=== PATIENT | female | born 1935 | race Caucasian/White ===

== ENCOUNTER → 2018-07-07 | Outpatient (CLI) | payer MEDICARE, OTHER | LOC: GMAM 11:55 | PROVIDERS: ATTEND Family Medicine | DX: R30.0 Dysuria (principal) ==

== ENCOUNTER → 2018-07-17 | Outpatient (CLI) | payer MEDICARE, OTHER ==
--- NOTE | 2018-07-17 19:31 | CT ---
EXAM DESCRIPTION: Abdomen/Pelvis w/o Contrast: Computed Tomography. CLINICAL HISTORY: ICD 10: N23 flank pain COMPARISON: None. TECHNIQUE: Spiral-axial scans at 5 x 5 mm intervals through the abdomen and pelvis. Coronal and sagittal 2.0mm reconstructions. No IV or oral contrast. Total Exam DLP: 840.39 mGy-cm. This exam was performed according to our departmental CT dose-optimization program which includes automated exposure control, adjustment of the mA and/or kV according to patient size and/or use of iterative reconstruction technique; to reduce radiation dose to as low as reasonably achievable (ALARA). FINDINGS: Kidneys and Ureters: Atherosclerotic calcifications bilaterally but no radiodense stones. No hydronephrosis bilaterally. Cortical atrophy on the right. Unusual low-density in the inferior cortex of the right kidney. No perinephric edema. Bilateral ureters are normal caliber. Pelvic Organs: Minimally distended with no radiodense stones. Vaginal cuff is unremarkable. No free fluid. Pelvic calcifications.. Lung and pleura bases: Minimal scarring on the right. No bilateral pleural effusion. Liver, spleen, stomach, and adrenal glands: Liver normal size and density. Minimal gas in the stomach. 1 x 2 cm enlargement of the left adrenal gland with Hounsfield density ranging from -11 to +5. This could represent a adrenal adenoma. Other solid organs are unremarkable. Pancreas, Gallbladder, Ducts: Gallbladder visualized. Pancreas negative. Duct may be slightly dilated. Aorta: Numerous atherosclerotic calcifications with ectasia extending into the bilateral common iliac arteries. 2.7 x 2.6 cm in the origin of the ACE. 2.5 x 2.3 cm just below the diaphragmatic aortic hiatus. Small Bowel: Unremarkable. Terminal Ileum/Cecum: Minimal edema in the TI wall. Minimal edema in the wall of the cecum. Appendix is not seen. Colon: Beginning in the mid ascending colon and seen involving the colon to the proximal sigmoid segment, is edema in the nunez. There is minimal fatty stranding and serosal thickening as well. Also lack of haustral markings. Splenic flexure is redundant. Diverticula are seen from the proximal descending colon into the sigmoid colon. No complications. Mesentery: No free air or free fluid, but minimal fatty changes as described abutting the abnormal colonic serosa above. Spine and Bony Pelvis: Advanced spondylosis T12-L1 and L2-3 through L4-5 with scoliosis and canal stenosis or narrowing and foraminal stenosis or narrowing at several levels. Mild arthrosis in the bilateral hip joints, SI joints, and pubic symphysis. Abdominal Wall/Back Soft Tissues: Negative. IMPRESSION: 1. No radiodense stones in the kidneys ureters or urinary bladder. Cortical atrophy and decreased size of the right kidney. Ill-defined cortex abutting the lower pole. The patient cannot receive IV contrast due to renal function, consider MRI scan of the bilateral kidneys to evaluate the lower pole cortex. 2. Edema involving the nunez of the terminal ileum cecum and most of the colonic segments to the proximal sigmoid with minimal serosal thickening and lack of haustral markings. This is nonspecific finding but can represent inflammatory process such as ulcerative colitis. Consider gastroenterology consult, or colonoscopy and mucosal biopsy. Diverticulosis without diverticulitis. 3. Enlargement of the left adrenal gland with Hounsfield density consistent with adenoma. 4. Diffuse spondylosis of the lumbar spine with significant canal narrowing and foraminal narrowing or stenosis at some levels. 5. Diffuse aortic atherosclerotic changes consistent with ectasia from the diaphragmatic hiatus to the bifurcation. Electronically signed by: Burke Truong MD 07/17/2018 7:29 PM CDT
== END ==
LOC: CT 11:59
PROVIDERS: ATTEND Family Medicine
DX: N23 Unspecified renal colic (principal); N39.0 Urinary tract infection, site not specified

== ENCOUNTER → 2018-07-25 | Outpatient (CLI) | payer MEDICARE, OTHER | LOC: GMATM 11:28 | PROVIDERS: ATTEND Nurse Practitioner Family | DX: R10.84 Generalized abdominal pain (principal); M54.5 Low back pain ==

== ENCOUNTER → 2018-08-07 | Outpatient (CLI) | payer MEDICARE, OTHER ==
--- NOTE | 2018-08-08 10:00 | MRI ---
EXAM DESCRIPTION: Lumbar Spine w/o Contrast : Magnetic Resonance Imaging. CLINICAL HISTORY: LOW BACK PAIN COMPARISON: CT scan abdomen and pelvis 07/17/2018. TECHNIQUE: Multiplanar, multiple standard sequences, non contrast MRI, lumbar spine. FINDINGS: L5-S1: Disc desiccation with disc space preserved. Tiny posterior midline bulge. Bilateral flavum ligament hypertrophy. Mild canal narrowing. Bilateral mild foraminal narrowing more left than right. L4-5: Significant disc space loss with irregular endplates. 4 mm anterolisthesis. Anterior disc bulge with spurs. Posterior 4 mm broad-based bulge. Facet arthrosis and flavum ligament and facet hypertrophy. AP canal diameter 3 mm. Bilateral subarticular recess narrowing. Bilateral disc osteophyte complex formation larger on the right with Modic type III endplate reaction. Right foraminal stenosis moderate left foraminal narrowing. L3-4: Severe disc space loss and disc desiccation. Anterior bulging with spurs. Posterior disc osteophyte complex bulge into the canal with 3 mm retrolisthesis. Moderate flavum ligament hypertrophy and facet arthrosis with AP canal diameter 5.2 mm. Bilateral mild to moderate foraminal narrowing. L2-3: Disc desiccation and severe disc space loss with anterior bulging and large spurs. Grade 1 retrolisthesis 4 mm posteriorly. Broad-based disc spur complex impressing on the thecal sac. Bilateral mild facet arthrosis with flavum ligament hypertrophy. AP canal diameter 6.7 mm. Bilateral moderate foraminal narrowing more on the left with disc bulging into the foramen. L1-2: Anterior disc bulging and endplate ridging. Elevation of the inferior L1 endplate with edema signal in the endplate and the anterior vertebral body. Grade 1 retrolisthesis 2 mm. Posterior broad-based disc bulge 4 mm. Flavum ligament hypertrophy. AP canal diameter 5 mm. Bilateral moderate foraminal narrowing. T12-L1: Severe disc space loss more to the left of midline. Anterior Modic type III endplate reactive changes with bulging disc and spurs. Modic type II endplate reactive changes on the left. Posterior broad-based 4 mm disc bulge. Facet arthrosis and flavum ligament hypertrophy bilaterally. Right foramen patent. Moderate narrowing left foramen. AP canal diameter 9.5 mm. Conus terminates at L1. L3 L5 levoscoliosis. Kyphosis at T12-L2. Paravertebral soft tissues fatty muscle atrophy.. Normal marrow signal in the remaining vertebral bodies and the posterior elements. Remaining vertebral bodies are not compressed. IMPRESSION: 1. Multiple levels of spondylolisthesis, spondylosis, and bases degeneration and disc space loss with facet arthrosis and flavum ligament hypertrophy. 2. Superior elevation of the inferior L1 endplate with edema suggesting recent compression injury. Also involving the anterior cortex. Grade 1 retrolisthesis. Posterior broad-based L1-2 disc bulge. Severe canal stenosis and bilateral moderate foraminal narrowing.. 3. Anterior advanced spondylosis T12-L1 and moderate spondylosis on the left. Posterior broad-based disc bulge. Moderate left foraminal narrowing. Borderline central canal stenosis. 4. Grade 1 retrolisthesis L2-3 and posterior broad-based disc bulge. Moderate to severe central canal stenosis. Moderate foraminal narrowing with disc bulging into the left foramen. 5. Severe disc desiccation L3-4 and posterior disc osteophyte bulge into the canal with severe multifactorial canal stenosis also related to the posterior elements. Bilateral moderate foraminal narrowing. 6. Anterolisthesis C4-5. Posterior disc bulge. Multifactorial advanced severe central canal stenosis. Bilateral subarticular recess narrowing. Moderate spondylosis on the right with right foraminal stenosis. Electronically signed by: Burke Truong MD 08/08/2018 9:59 AM CDT
== END ==
LOC: MRI 11:16
PROVIDERS: ATTEND Family Medicine
DX: M43.16 Spondylolisthesis, lumbar region (principal); M51.26 Other intervertebral disc displacement, lumbar region; M51.24 Other intervertebral disc displacement, thoracic region; M50.221 Other cervical disc displacement at C4-C5 level; M48.02 Spinal stenosis, cervical region; M48.04 Spinal stenosis, thoracic region; M48.061 Spinal stenosis, lumbar region without neurogenic claudication

== ENCOUNTER → 2019-02-27 | Outpatient (CLI) | payer MEDICARE, OTHER ==
--- NOTE | 2019-02-27 14:51 | CT ---
EXAM DESCRIPTION: Chest w/Contrast : Computed Tomography. CLINICAL HISTORY: 83 years Female TOBACCO ABUSE COMPARISON: CT scan of the chest with IV contrast 10/26/2016. TECHNIQUE: Spiral-axial scans at 5 x 5 mm intervals through the lungs and thorax with IV contrast. 2.5 x 5 mm lung algorithm axial reconstructions. Coronal and sagittal 2.0 Mm reconstructions. No adverse reactions. Total Exam DLP: 221.58 mGy-cm. This exam was performed according to our departmental dose-optimization program which includes automated exposure control, adjustment of the mA and/or kV according to patient size and/or use of iterative reconstruction technique; to reduce radiation dose to as low as reasonably achievable (ALARA). Nodule measurements under 10 mm are given as mean value of 3 axes diameters. FINDINGS: Lungs and large airways: Emphysematous blebs symmetrically throughout the parenchyma decreasing in number from the upper lung kitchen to the lung bases. Peripheral groundglass density on the right more than the left with same density in the right lung base. No abnormal nodules or masses. No focal infiltrates. Pleural spaces: Negative. Mediastinum and Radha: Unremarkable. Great vessels and Heart: Atherosclerotic calcification proximal brachiocephalic vessels, aortic arch and thoracic aorta with intimal wall thickening distally. Atherosclerotic calcification in the coronary arteries. Soft tissues of neck base, axillae, and chest wall: Bilateral breast solitary scattered calcifications. Upper abdomen: Included peritoneal cavity is unremarkable. Atherosclerotic calcifications of aorta and branch vessels. Prominent left adrenal gland but no definite mass. Osseous structures: Thoracic spondylosis at multiple levels with spondylosis significant at T12-L1 and L1-2. Bilateral sternoclavicular arthrosis and bilateral glenohumeral joint arthrosis, more on the right. No bony lytic or blastic lesions. IMPRESSION: Emphysematous changes in the lungs more in the upper lung kitchen. Peripheral early minimal honeycombing densities mostly on the right and in the right lung base. Consistent with clinical history. No significant progression since prior chest CT scan September 2016. No abnormal nodules or masses, no focal infiltrates. Electronically signed by: Burke Truong MD 02/27/2019 2:49 PM CDT
--- NOTE | 2019-02-27 16:54 | US ---
EXAM DESCRIPTION: Soft Tissue,Extremity: ULTRASOUND. CLINICAL HISTORY: 83 years Female MASS. Pain in the right lateral pelvic wall and pelvis. The hip. COMPARISON: CT scan of the chest with contrast on the same visit. TECHNIQUE: Transcutaneous scanning: Raya-scale mode. FINDINGS: Adipose tissue and the pelvic wall muscles are visualized. No abnormal dominant solid mass or distinct cyst. No parenchymal edema or large calcifications. No overlying skin changes. IMPRESSION: No ultrasound abnormality corresponding to region of pain in the right pelvis. Electronically signed by: Burke Truong MD 02/27/2019 4:52 PM CDT
== END ==
LOC: CT 09:00
PROVIDERS: ATTEND Family Medicine
DX: F17.210 Nicotine dependence, cigarettes, uncomplicated (principal); J43.9 Emphysema, unspecified; R22.2 Localized swelling, mass and lump, trunk

== ENCOUNTER → 2019-06-10 | Outpatient (CLI) | payer MEDICARE, OTHER ==
--- NOTE | 2019-06-10 17:52 | US ---
EXAM DESCRIPTION: Carotid Duplex: ULTRASOUND. CLINICAL HISTORY: 83 years Female CAD COMPARISON: Ultrasound carotid duplex 03/04/2015, report not available. TECHNIQUE: Transcutaneous scanning utilizing quigley-scale and Doppler modes to evaluate the bilateral carotid systems and vertebral arteries. Percentage of diameter of stenosis or no stenosis recorded will be based upon NASCET criteria. FINDINGS: Peak systolic/end diastolic (CM-Sec) CCA Right 73/15 Left 61/20. ICA Right proximal 80/18, distal 62/17. Left proximal 75/21, mid 63/18.. Vertebral Right 45/9 Left 50/12. ECA (PS Only) Right 132 left 43. ICA/CCA peak systolic ratio: Right 1.0 Left 1.2 ICA/CCA end diastolic ratio: Right 1.3 Left 1.0 Vertebral arteries: antegrade flow. Comments bilateral atherosclerotic calcifications at the bifurcations and also in the proximal ICAs.: Spectral broadening bilateral ICAs. At the mid right CCA, area stenosis is 30% and diameter stenosis 20%. Right CCA bulb: Area stenosis 27%, diameter stenosis 46%. Proximal right ICA: Area stenosis 64%, diameter stenosis 51%. Left mid CCA: Area stenosis 34%. Diameter stenosis 41%. Left CCA mid bulb area stenosis 40%, diameter stenosis 43%. Proximal ICA: Area stenosis 33%. Diameter stenosis 20%.. IMPRESSION: 1. Doppler evaluation of the bilateral carotid systems and vertebral arteries shows no hemodynamically significant stenoses. No critical stenoses seen on grayscale imaging as well. 2. Moderate to severe amount of plaque seen in the carotid arteries bilaterally. Bilateral vertebral arteries showed antegrade-cephalad flow. Electronically signed by: Burke Truong MD 06/10/2019 5:50 PM CDT
== END ==
LOC: US 13:30
PROVIDERS: ATTEND Internal Medicine Interventional Cardiology
DX: I25.10 Atherosclerotic heart disease of native coronary artery without angina pectoris (principal); I65.23 Occlusion and stenosis of bilateral carotid arteries

== ENCOUNTER → 2019-08-06 | Outpatient (CLI) | payer MEDICARE, OTHER ==
--- NOTE | 2019-08-07 09:54 | US ---
EXAM DESCRIPTION: Extremity,Lower Preet Arteries: Ultrasound. CLINICAL HISTORY: PVD COMPARISON: None. TECHNIQUE: Doppler evaluation of the bilateral lower extremity arterial flow waveforms and velocities. FINDINGS: Arterial waveforms in the right lower extremity are all biphasic.. Arterial waveforms in the left lower extremity are biphasic except DPA which is monophasic with good velocity.. Comments: None. IMPRESSION: No significant atherosclerotic occlusive disease in the right lower extremity. Possibly significant occlusive lesion in the proximal or distal left ZOEY. Good velocity in the left DPA. Consider non-emergent CTA of the aorta with bilateral lower extremity runoff technique. Electronically signed by: Burke Truong MD 08/07/2019 9:52 AM CDT
== END ==
LOC: US 14:00
PROVIDERS: ATTEND Family Medicine
DX: I73.9 Peripheral vascular disease, unspecified (principal)

== ENCOUNTER → 2019-08-11 | Outpatient (CLI) | payer MEDICARE, OTHER ==
--- NOTE | 2019-08-11 16:36 | CT ---
EXAM DESCRIPTION: CTA Runoff: Computed Tomography. CLINICAL HISTORY: Peripheral vascular disease COMPARISON: Bilateral lower extremity arterial system Doppler evaluation 06 August 2019. TECHNIQUE: CT angiography of the abdominal aorta and both lower extremities is performed during rapid bolus administration of IV contrast media. Three-dimensional volume-rendering imaging is reviewed along with 2.5 x 2.5 mm source images, and 2.0 mm coronal and sagittal reformats. Total Exam DLP: 1065.6 mGy-cm. This exam was performed according to our departmental CT dose-optimization program which includes automated exposure control, adjustment of the mA and/or kV according to patient size and/or use of iterative reconstruction technique; to reduce radiation dose to as low as reasonably achievable (ALARA). FINDINGS: Upper abdominal aorta: Intimal narrowing of the origin of the celiac axis but no poststenotic dilation. Unremarkable origin of the SMA with minimal calcification. No aortic aneurysm or stenosis. Mid-abdominal aorta: Narrowing and atherosclerotic calcification in the ostia of the single right renal artery. Single left renal artery origin is unremarkable. . Distal abdominal aorta: 2.6 x 2.4 cm aortic diameter at the L2-L3 level. Moderate atherosclerotic calcification. Origin of the ACE unremarkable. Common iliacs: Complete occlusion of the right common iliac artery within 2 cm above the bifurcation. Mostly soft plaque with minimal calcification. Collateral flow to the right internal iliac and right external iliac vessels via pelvic and abdominal vessels. Ectasia and multiple calcifications within the left internal iliac but no significant narrowing or aneurysm. Internal iliacs: Moderate calcification bilaterally but no significant stenosis. Collateral flow to the right vessel. Right external iliac artery: Collateral flow from the abdominal wall vessels smaller than the contralateral left vessel minimal calcifications.. 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 Minimal plaque with less than 20% diameter stenosis. Minimal plaque in the distal left vessel.. Right SFA: Intermittent plaque with approximately 50% diameter stenosis at the level of the posterior femoral tubercle,, a 3 cm segment, approximately 17 cm above the medial femoral condyle. Popliteal arteries: Unremarkable bilaterally. Right trifurcation vessels: Fair runoff to the origins. Conus vessel terminates above the lower tib-fib syndesmosis. Poor runoff into the distal ZOEY and no contrast seen in the DPA. [employer] contains a calcification at the level of the syndesmosis with no contrast seen distally. Left external iliac artery: Negative. Left SFA: : Intermittent plaque along the entire length. Approximately 50-60% diameter stenosis over a 3.2 cm segment that begins approximately 12 cm above the intracondylar notch of the left femur. Left trifurcation vessels: Fair runoff into the proximal vessels. Multiple calcifications seen in the mid and distal peroneal artery with poor visualization distally and complete occlusion above the level of the tibia fibula syndesmosis. Calcification in the distal anterior tibial artery poor runoff distally into the dorsalis pedis artery. Poor runoff of the distal [employer] into the posterior ankle. Other: 4 mm bony loose body between the tibial spine and the popliteal artery on the left. Arthrosis bilateral hips multiple levels of the lumbar spine with scoliosis. Gallbladder visualized. Right renal cortical atrophy. The arthrosis including the patellofemoral joint more on the left. IMPRESSION: 1. 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 2. 2.6 cm abdominal aortic aneurysm at the L2-L3 level. No vessel occlusion. Ectasia multiple levels. Recommend follow-up every 5 years. Reference: J Am Jason Radiol 2013;10:789-794. 3. Bilateral diffuse 60% diameter stenoses of the mid and distal SFAs. 4. Occlusion of the right [employer] above the ankle mortise. The distal right ZOEY with no contrast in the right DPA. 5. Poor runoff of the distal left ZOEY into the left DPA. Poor runoff of the distal left [employer] the posterior left ankle Electronically signed by: Burke Truong MD 08/11/2019 4:34 PM CDT
== END ==
LOC: CT 09:30
PROVIDERS: ATTEND Family Medicine
DX: I70.213 Atherosclerosis of native arteries of extremities with intermittent claudication, bilateral legs (principal); I70.8 Atherosclerosis of other arteries; I71.4 Abdominal aortic aneurysm, without rupture

== ENCOUNTER → 2019-12-07 | Outpatient (CLI) | payer MEDICARE, OTHER ==
--- NOTE | 2019-12-07 18:12 | RAD ---
EXAM DESCRIPTION: Lumbar Spine 3 Views CLINICAL HISTORY: 84 years Female, LOW BACK PAIN COMPARISON: 02/27/2019 Findings: 3 views/radiographs Five nonrib-bearing vertebral bodies. Minimal leftward curvature of the lower lumbar spine apex at L4. Chronic L1 anterior wedging with similar height loss. No new fracture is identified. Similar multilevel disc space narrowing with endplate degenerative change, marginal osteophytosis and facet hypertrophy most pronounced at L2/L3 and L3/L4. Osteopenia. Atherosclerotic plaque in the abdominal aorta. Degenerative changes in the sacroiliac joints. IMPRESSION: Multilevel lumbar spondylosis. No acute fracture or subluxation. Electronically signed by: Fidencio Coleman MD 12/07/2019 6:11 PM [facility]
== END ==
LOC: RAD 10:14
PROVIDERS: ATTEND Physician Assistant
DX: M48.062 Spinal stenosis, lumbar region with neurogenic claudication (principal); M47.896 Other spondylosis, lumbar region